=== PATIENT | female | born 1985 | race Caucasian/White ===

== ENCOUNTER 2018-10-08 08:44 | Day surgery (SDC) | payer OTHER ==
--- NOTE | 2018-10-07 21:39 | PDGENHP ---
History and Physical - Chief Complaint LEFT HIP PAIN - History of Present Illness Diagnosis: 1. Bilateral~Femoroacetabular impingement (ELSI) Cam type,~with~resultant labral tear; LEFT MORE SYMPTOMATIC 2. 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 ~ Ramirezenjoys running, skiing, and [employer]. Leidy's~bilateral~hip pain (LEFT>>RIGHT)~started~November 2016, with~no~recalled trauma or injury, and with~no~previous complaints.~Ramirezhas~a known history of hip dysplasia. She was evaluated by Dr. Bergeron and Dr. Quintanilla~who said she needed a EDWIN~and Dr. Paige and Dr. Moon who said she didn't. Presentation today is of~C-shaped pattern~left~hip pain, lateral right hip pain. ~The hip~does not~wake her~at night and~does~click and catch on~her. Sitting~does not present a problem~for her.~Ramirezdoes~report suffering from lower back pain episodes. Ramirezhas not~participated in physical therapy and has~tried other conservative measures including chiropractic treatments and massage therapy.~Edna ~has not~received sufficient symptomatic improvement. Ramirezhas not~utilized medication for pain management. Ramirezunderstands that~edna~has a hip and pelvis problem which should be researched and wishes to get a better understanding of~her~hip status, followed by an establishment of a treatment strategy, hoping~edna~would be able to get back to~her~well being active life. History: Past medical history:~~ None which is relevant~ Relevant familial history:~None which is relevant~ Past surgical history:~ None Ramirezhas never received general anesthesia. I have reviewed, verified and agree with the past medical, surgical, family and social history. Current Medications:~currently has no medications in their medication list. ALLERGIES:~has No Known Allergies. Objective: Physical Examination: Leidy~is 5~feet~4~inches tall and weighs~160~Lbs. Shoe size~7.5. Leidy~is AAO x3; she~is well-nourished, in NAD. Skin is warm and dry. ~ Breathing is non-labored. ~CV with RRR by pulse. Abdomen is soft, NTND. Currently,~she~walks with a~normal~gait. Trendelenburg sign is~negative~and proprioception~is normal,~both~sides. She~presents~with mild~signs of joint laxity.~Beightons Score:~1~(touching floor ) Lower spine examination is~negative~for sciatic or femoral nerve irritation with negative~SLR &~femoral stretch tests. Range of motion of the spine is normal~for flexion, extension, and rotations,~with no~associated pain. Strength, Sensation and pulses are~normal -~bilaterally Ankles and knees exams are~normal~and~no~mal-alignment is evident.~ She~has~no leg length discrepancy. Thigh circumference is~symmetric~with no evidence for muscle atrophy~on both~ sides. Hip ROM (degrees): FL ER At 90~hip FL IR At 90~hip FL AB AD EX IR Neutral hip ER Neutral hip R 100 55 10 35-40 10 10 40 50 L 105 50 20 40 5 10 50 40 Specific hip and pelvis tests: Impingement Test ROMA Roll Add. Longus R ++ Negative Negative Negative L +++ +++ Negative Negative Glut. Med ITB Posterior Imp R Negative 5/5 strength + 5/5 strength Negative L Negative 5/5 strength Negative 5/5 strength Negative Squeeze test measured~normal Bony Symphysis pubis is~pain free~to touch while concentric activity of the rectus abdominis, does not~produce pain at its insertion. Ilio Psos specific tests are~negative for pain during cycling for~both hips~and remarkable for~non painful snap; LEFT HIP HF has~weakness, no pain~both hips. anterior~capsule tenderness LEFT Greater trochanteric burse is~pain free~on both hips. Piriformis tests: FAIR is~negative,~with no~local signs of neuritis related to sciatic nerve. SIJs examination is~produces pain on~right side~with~normal~ROMA in relation and local tenderness. Hamstrings tests are~negative~functional contraction and negative~tendinopathy both hips. On a daily basis, the following percentages reflectAzael's overall total pain : Deep hip:~90% Right SI Joint:~10% Imaging: Radiology studies which I~have personally reviewed, analyzed and measured are below: XR: AP of the hip and pelvis: Performed in a~good~technique Coccyx~at level of the~pubic symphysis Standing [place]~Lines are preserved. Minimal~Pathological signs are seen in the Symphysis Pubis.~ Minimal~Pathological signs are seen at the Ischial~tuberosity. ~ Specific measurements show: NSA~ LCE Sourcil~Angle Sharp's angle Lat. Cam Lat. Pincer C.Over~sign Head~Coverage % ATDmm R 129 24 3 39 + - 12-1 78 N L 132 23 10 42 + - 12-1:30 75 N Pos. wall sign ISS NAD ~~Dysplasia Comments R Negative Negative 11.8~mm + L Negative Negative 9.3~mm + Sclerosis Sup. Lat. OA Cysts Joint Space-WBZ Joint Space-Medial R Negative Negative Negative 4.0~mm 4.0~mm L Negative Negative Negative 3.6~mm 3.4~mm X Table lateral: Anterior cam lesion is~seen~on both hips. Alpha Angle: ~ Right~61~degrees Left~62~degrees MRI shows:~good cartilage quality, NO increased cartilage thickness, no bone edema or cystic changes, labral NOT hypertrophied but torn. Impression and plan: Roland Guzmánis a~32 y.o.~active female~suffering from symptomatic~Bilateral~hip pain due to Femoroacetabular impingement (ELSI)~Cam type,~with~resultant labral tear Borderline Hip Dyplasia~causing significant disability to~her~and altering~ her~sport and life activities. Physical examination, imaging, and~her~story correspond with the diagnosis mentioned above. I explained that hip dysplasia is a condition wherein the hip joint has excessive play~and instability due to a variety of factors, including the depth and adequacy of the socket, the orientation of the femur bone, and ligament laxity around the hip joint. Dysplasia ranges in severity from borderline to rui, with treatment options being specific to the specific nature of the problem. Left untreated, the instability in the hip joint can cause progressive tearing of the labrum and deterioration of the surface cartilage, ultimately resulting in progressive osteoarthritis of the hip. I explained that femoroacetabular impingement (ELSI - Cam type) arises due to a bony or soft tissue conflict between the femur (ball) and acetabulum (socket) caused by an abnormality in the shape of the femoral head and neck. Over time, repetitive impingement can result in damage to the labrum and adjacent surface cartilage within the socket, ultimately giving rise to progressive osteoarthritis of the hip. I explained that although a labral tear can be a source of pain, it is rarely the root of the problem and typically occurs secondary to an underlying abnormality in the shape and mechanics of the hip joint. I reviewed conservative treatment options for Dysplasia and ELSI including activity modification to avoid positions of impingement or instability, physical therapy, non-steroidal anti-inflammatory medications, and various injections (corticosteroid and PRP) aimed at reducing inflammation in the hip joint or/and preventing dynamic instability and impingement. PRP injections may promote healing and reduce symptoms in certain cases but it will not repair chronically damaged tissue. Although these measures may help to buy time~and reduce current level of symptoms, they are not a definitive solution to the problem given the underlying abnormality in the shape of the hip joint. Patients who have failed conservative management and continue to experience symptoms are candidates for definitive surgical treatment, which may consist of hip arthroscopy alone or in combination with more invasive bony realignment procedures of the hip socket and/or femur called periacetabular osteotomy (EDWIN) or derotational femoral osteotomy (DFO). Hip arthroscopy typically includes treating the labrum with either repair or reconstruction of the torn labrum; as well as addressing the underlying abnormalities by restoring the normal shape to the hip joint. If the cartilage is damaged a Microfracture surgical procedure may also be necessary to help stimulate the growth of fibrocartilage. If a patient requires a labral reconstruction or a Microfracture, the initial rehabilitation from the surgery may take longer, but the custodial results are typically favorable. We discussed in length both options presented to her (scope only and scope/EDWIN) and the pro/cons of each option. Leidy~will review the info presented. In order to obtain more detailed information regarding the alignment, orientation, and shape of the bony hip and pelvis I will order a CT scan to be performed. The results of the CT scan, including femoral torsion and acetabular version measured values and 3D images, will aid me in deciding on the best treatment strategy and surgical pre-planning. Ramirezis going to contact us after completing her~imaging studies. Ramirezis happy with this plan. I have also supplied~her~with handouts, outlining the expected surgical treatment and rehab involved. I wish~LeidyRolandall the best, ~~ Horacio Manzano, PAC History Information - Allergies/Home Medication List Allergies/Adverse Reactions: No Known Allergies Allergy (Verified 09/24/18 11:08) Home Medications: Ibuprofen 09/24/18 [Last Taken Unknown] Lo-Loestrin 09/24/18 [Last Taken Unknown] I have personally reviewed and updated: medical history - Social History Smoking Status: Never smoked Review of Systems Review of Systems: Physical Exam Physical Exam:
[2018-10-08] MEDS ORDERED: ceFAZolin 2 GM/DEXTROSE 100 ML IV ONE (08:53)
[2018-10-08] MEDS ORDERED: ACETAMINOPHEN 500 MG TAB PO ONE (08:53)
[2018-10-08] MEDS ORDERED: PREGABALIN 150 MG CAP PO ONE (08:53)
[2018-10-08] MEDS ORDERED: BUPIVACAINE/EPI 0.25% 30 ML SDV ONE (09:01)
[2018-10-08] MEDS ORDERED: EPINEPHrine 30 MG/30 ML MDV (0.1 MG/0.1 ML) ONE (09:02)
[2018-10-08] MEDS ORDERED: LR 1,000 ML IV ONE (09:29)
[2018-10-08] MEDS ORDERED: PREGABALIN 150 MG CAP ONE (09:36)
--- NOTE | 2018-10-08 10:37 | PDANEPAE ---
ANE History of Present Illness here for labral tear repair on the left ANE Past Medical History - Cardiovascular History Hx Hypertension: No Hx Arrhythmias: No Hx Chest Pain: No Hx Coronary Artery / Peripheral Vascular Disease: No Hx CHF / Valvular Disease: No Hx Palpitations: No - Pulmonary History Hx COPD: No Hx Asthma/Reactive Airway Disease: No Hx Recent Upper Respiratory Infection: No Hx Oxygen in Use at Home: No Hx Sleep Apnea: No Sleep Apnea Screening Result - Last Documented: Negative - Neurologic History Hx Cerebrovascular Accident: No Hx Seizures: No Hx Dementia: No - Endocrine History Hx Diabetes: No - Renal History Hx Renal Disorders: No - Liver History Hx Hepatic Disorders: No - Neurological & Psychiatric Hx Hx Neurological and Psychiatric Disorders: No - Cancer History Hx Cancer: No - Congenital Disorder History Hx Congenital Disorders: Yes Congenital History Comment: hip dysplasia - GI History Hx Gastrointestinal Disorders: Yes Gastrointestinal History Comment: intermittent nausea - Other Health History Other Health History: none - Chronic Pain History Chronic Pain: Yes (pain behind right knee) - Surgical History Prior Surgeries: none ANE Review of Systems Review of Systems: - Exercise capacity METS (RN): 4 METS ANE Patient History - Allergies Allergies/Adverse Reactions: No Known Allergies Allergy (Verified 09/24/18 11:08) - Home Medications Home Medications: Ibuprofen 09/24/18 [Last Taken Unknown] Lo-Loestrin 09/24/18 [Last Taken Unknown] - NPO status NPO Since - Liquids (Date): 10/07/18 NPO Since - Liquids (Time): 21:00 NPO Since - Solids (Date): 10/07/18 NPO Since - Solids (Time): 20:00 - Smoking Hx Smoking Status: Never smoked - Family Anes Hx Family Hx Anesthesia Complications: none ANE Labs/Vital Signs - Vital Signs Blood Pressure: 120/78 Heart Rate: 83 Respiratory Rate: 5 O2 Sat (%): 99 Height: 160.02 cm Weight: 72.121 kg ANE Physical Exam - Airway Neck exam: FROM Mallampati Score: Class 1 Mouth exam: normal dental/mouth exam - Pulmonary Pulmonary: no respiratory distress, no rales or rhonchi - Cardiovascular Cardiovascular: regular rate and rhythym, no murmur, rub, or gallop - ASA Status ASA Status: II ANE Anesthesia Plan Anesthesia Plan: general endotracheal anesthesia Total IV Anesthesia: No
[2018-10-08] MEDS ORDERED: MIDAZOLAM 2 MG/2 ML VIAL IVP ONE (10:38)
[2018-10-08] MEDS ORDERED: SCOPOLAMINE HYDROBROMIDE 1 MG/3 DAYS PATCH TD ONE (10:44)
[2018-10-08] MEDS ORDERED: SCOPOLAMINE HYDROBROMIDE 1 MG/3 DAYS PATCH TD SCH (10:45)
[2018-10-08] MEDS ORDERED: fentaNYL 100 MCG/2 ML INJ ONE ×2 (11:14→13:53)
[2018-10-08] MEDS ORDERED: ROCURONIUM 50 MG/5 ML VIAL ONE (11:14)
[2018-10-08] MEDS ORDERED: PROPOFOL 200 MG/20 ML VIAL ONE (11:14)
[2018-10-08] MEDS ORDERED: LIDOCAINE 2% 100 MG/5 ML SYR ONE (11:14)
[2018-10-08] MEDS ORDERED: DEXAMETHASONE 4 MG/ML VIAL ONE (11:14)
[2018-10-08] MEDS ORDERED: ONDANSETRON 4 MG/2 ML VIAL ONE (13:53)
[2018-10-08] MEDS ORDERED: SUGAMMADEX SODIUM 200 MG/2 ML VIAL IVP ONE (13:53)
[2018-10-08] MEDS ORDERED: NALOXONE HCL 0.4 MG/ML INJ IVP PRN (14:11)
[2018-10-08] MEDS ORDERED: fentaNYL 100 MCG/2 ML INJ IVP PRN (14:11)
[2018-10-08] MEDS ORDERED: DIAZEPAM 10 MG/2 ML SYR IVP PRN (14:16)
[2018-10-08] MEDS ORDERED: oxyCODONE IR 5 MG TAB PO PRN (14:16)
[2018-10-08] MEDS ORDERED: PHENYLEPHRINE HCL 100 MCG/ML SYR IVP PRN (14:16)
[2018-10-08] MEDS ORDERED: PROMETHAZINE HCL 25 MG/ML INJ IVP PRN (14:16)
[2018-10-08] MEDS ORDERED: LR 500 ML IV PRN (14:16)
[2018-10-08] MEDS ORDERED: MEPERIDINE 25 MG/0.5 ML AMP IVP PRN (14:16)
--- NOTE | 2018-10-08 14:35 | POSTANESTH ---
Post Anesthetic Evaluation Cardiovascular Status: Normal, Stable Respiratory Status: Normal, Stable Level of Consciousness/Mental Status: Can Participate in Eval, Mildly Sleepy, Arousable Pain Control: Adequate, Prn Tx Ordered Nausea/Vomiting Control: Adequate, Prn Tx Ordered Complications Possibly Related to Anesthesia: None Noted
[2018-10-08] MEDS ORDERED: HYDROmorphONE/DILAUDID 1 MG/ML INJ ONE (14:48)
[2018-10-08] MEDS: HYDROmorphONE/DILAUDID 1 MG/ML INJ IVP PRN ×2 (14:50→14:55)
--- NOTE | 2018-10-08 15:16 | POSTOPPROG ---
Post Op Note Date of Operation: 10/08/18 Surgeon: Jorge Luis Ruelas Photography Coordinator: Dr. Coffman Anesthesia: GET(General Endotracheal) Pre-op Diagnosis: LEFT ELSI Post-op Diagnosis: LEFT ELSI Procedure: Left Hip Arthroscopy Inf/Abcess present in the surg proc area at time of surgery?: No
[2018-10-08] MEDS ORDERED: oxyCODONE IR 5 MG TAB ONE (15:32)
[2018-10-08 16:24] VITALS: BP 110/66
[2018-10-11] MEDS ORDERED: PATCH REMOVAL 1 EA PATCH TD SCH (10:43)
== END 2018-10-08 16:55 | disposition home or self-care (01) ==
LOC: FSGY 08:44
PROVIDERS: ATTEND Orthopaedic Surgery Sports Medicine
PROC: 0SQB4ZZ Repair Left Hip Joint, Percutaneous Endoscopic Approach (ICD-10-PCS; principal; 2018-10-08 10:45)
DX: M25.852 Other specified joint disorders, left hip (principal); M24.152 Other articular cartilage disorders, left hip
CPT/HCPCS: C1713; J0171; J0690; J1100; J1170; J2001; J2250; J2405; J2704; J3010